=== PATIENT | female | born 1995 | race Caucasian/White ===

== ENCOUNTER 2018-06-12 09:46 | Outpatient (CLI) | payer BC, SELFPAY ==
[2018-06-12 12:10] LABS: Calcium 9.1 mg/dL (8.5-10.1); FREE T4 1.32 ng/dL (0.76-1.46); TSH 0.83 uIU/mL (0.358-3.74)
[2018-06-14 13:21] LABS: Parathyroid Hormone,Intact 28 pg/ml (19-88)
[2018-06-15 12:01] LABS: Calcitonin <5.0 pg/mL (<=7.6)
[2018-06-16 10:41] LABS: Metanephrine, Free <0.20 nmol/L (<0.50); Normetanephrine, Free 0.41 nmol/L (<0.90)
== END 2018-06-12 10:06 ==
PROVIDERS: Visit Provider Internal Medicine Endocrinology, Diabetes & Metabolism
DX: E31.22 Multiple endocrine neoplasia [MEN] type IIA (principal)
CPT/HCPCS: 36415; 82308; 82310; 83835; 83970; 84439; 84443

== ENCOUNTER 2019-07-01 01:55 | Outpatient (CLI) | payer BC, SELFPAY ==
[2019-07-01 14:17] LABS: Calcium 9.5 mg/dL (8.5-10.1); TSH 1.01 uIU/mL (0.36-3.74)
[2019-07-04 11:29] LABS: Metanephrine, Free <0.20 nmol/L (<0.50); Normetanephrine, Free 0.35 nmol/L (<0.90)
[2019-07-04 12:24] LABS: Parathyroid Hormone,Intact 38 pg/mL (19-88)
[2019-07-06 13:50] LABS: Calcitonin <5.0 pg/mL (<=7.6)
== END 2019-07-01 02:15 ==
PROVIDERS: Internal Medicine Endocrinology, Diabetes & Metabolism; PCP Nurse Practitioner Family; Visit Provider Internal Medicine
DX: E31.22 Multiple endocrine neoplasia [MEN] type IIA (principal)
CPT/HCPCS: 36415; 82308; 82310; 83835; 83970; 84443

== ENCOUNTER 2021-06-10 02:35 | Outpatient (CLI) | payer SELFPAY ==
[2021-06-10 14:22] LABS: Anion Gap 9.7 mmol/L (3-11); BUN 14 mg/dL (7-18); CO2 27.3 mmol/L (21.0-32.0); CREATININE 0.8 mg/dL (0.55-1.02); Calcium 9.7 mg/dL (8.5-10.1); Chloride 104 mmol/L (98-107); FREE T4 1.26 ng/dL (0.76-1.46); Glucose 92 mg/dL (74-106); Potassium 3.6 mmol/L (3.5-5.1); Sodium 141 mmol/L (136-145); TSH 0.09 uIU/mL (0.36-3.74)
[2021-06-11 15:47] LABS: Calcitonin <5.0 pg/mL (<=7.6)
[2021-06-14 11:38] LABS: Metanephrine, Free <0.20 nmol/L (<0.50); Normetanephrine, Free 0.42 nmol/L (<0.90)
== END 2021-06-10 02:36 | disposition home or self-care (01) ==
PROVIDERS: PCP Nurse Practitioner Family; Visit Provider Internal Medicine Endocrinology, Diabetes & Metabolism
DX: E31.22 Multiple endocrine neoplasia [MEN] type IIA (principal); E03.9 Hypothyroidism, unspecified
CPT/HCPCS: 36415; 80048; 82308; 83835; 84439; 84443

== ENCOUNTER 2023-01-26 05:02 | Outpatient (CLI) | payer MEDICAID, SELFPAY ==
[2023-01-26 15:38] LABS: FREE T4 0.93 ng/dL (0.76-1.46); TSH 2.82 uIU/mL (0.36-3.74)
[2023-01-26 20:55] LABS: Vitamin D 25 Total 36.1 ng/mL (30-100)
[2023-01-27 09:35] LABS: Parathyroid Hormone,Intact 36 pg/mL (19-88)
[2023-01-27 19:24] LABS: Calcitonin <5.0 pg/mL (<=7.6)
[2023-01-29 17:51] LABS: Metanephrine, Free <0.20 nmol/L (<0.50)
== END 2023-01-26 05:03 | disposition home or self-care (01) ==
PROVIDERS: PCP Nurse Practitioner Family; Visit Provider Internal Medicine Endocrinology, Diabetes & Metabolism
DX: E31.22 Multiple endocrine neoplasia [MEN] type IIA (principal); E89.0 Postprocedural hypothyroidism
CPT/HCPCS: 36415; 82306; 82308; 82310; 83835; 83970; 84439; 84443

== ENCOUNTER 2024-04-05 03:05 | Outpatient (CLI) | payer BC, SELFPAY ==
[2024-04-05 10:53] LABS: Calcium 9.8 mg/dL (8.5-10.1); FREE T4 0.88 ng/dL (0.76-1.46); TSH 10.82 uIU/mL (0.36-3.74)
[2024-04-05 11:29] LABS: Vitamin D 25 Total 36.5 ng/mL (30-100)
[2024-04-05 18:38] LABS: Parathyroid Hormone,Intact 24.4 pg/mL (19.0-88.0)
[2024-04-07 20:41] LABS: Calcitonin <5.0 pg/mL (<=7.6)
[2024-04-11 09:40] LABS: Metanephrine, Free <0.20 nmol/L (<0.50); Normetanephrine, Free 0.35 nmol/L (<0.90)
== END 2024-04-05 03:06 | disposition home or self-care (01) ==
PROVIDERS: PCP Nurse Practitioner Family; Visit Provider Internal Medicine Endocrinology, Diabetes & Metabolism
DX: E31.22 Multiple endocrine neoplasia [MEN] type IIA (principal)
CPT/HCPCS: 36415; 82306; 82308; 82310; 83835; 83970; 84439; 84443

== ENCOUNTER 2024-05-09 03:14 | Outpatient (CLI) | payer BC, SELFPAY ==
[2024-05-09 13:49] LABS: TSH (W/Ref FT4) 11.12 uIU/mL (0.36-3.74)
== END 2024-05-09 03:15 | disposition home or self-care (01) ==
PROVIDERS: PCP Nurse Practitioner Family; Visit Provider Internal Medicine Endocrinology, Diabetes & Metabolism
DX: E31.22 Multiple endocrine neoplasia [MEN] type IIA (principal); E03.9 Hypothyroidism, unspecified
CPT/HCPCS: 36415; 84439; 84443

== ENCOUNTER 2024-07-18 01:54 | Outpatient (CLI) | payer BC, SELFPAY | END 2024-07-18 01:55 | disposition home or self-care (01) | PROVIDERS: PCP Nurse Practitioner Family; Visit Provider Internal Medicine Endocrinology, Diabetes & Metabolism | DX: E89.0 Postprocedural hypothyroidism (principal) | CPT/HCPCS: 36415; 84443 ==

== ENCOUNTER 2024-08-17 02:19 | Outpatient (CLI) | payer BC, SELFPAY ==
[2024-08-24 13:05] LABS: Testosterone, Total 475 ng/dL (8-60)
== END 2024-08-17 02:20 | disposition home or self-care (01) ==
PROVIDERS: PCP Nurse Practitioner Family; Visit Provider Physician Assistant Medical
DX: F64.9 Gender identity disorder, unspecified (principal)
CPT/HCPCS: 36415; 84403

== ENCOUNTER 2025-02-09 03:24 | Outpatient (CLI) | payer BC, SELFPAY ==
[2025-02-09 10:11] LABS: HGB 18.2 g/dL (11.2-15.7)
== END 2025-02-09 03:25 | disposition home or self-care (01) ==
PROVIDERS: PCP Nurse Practitioner Family; Visit Provider Nurse Practitioner Family
DX: F64.9 Gender identity disorder, unspecified (principal)
CPT/HCPCS: 36415; 85018

== ENCOUNTER 2025-04-06 08:15 | Outpatient (CLI) | payer BC, SELFPAY ==
[2025-04-06 13:07] LABS: HCT 50.0 % (36.0-46.0); HGB 17.1 g/dL (11.2-15.7); MCH 29.9 pg (27.0-33.0); MCHC 34.2 % (32.0-36.0); MCV 87 fL (80-95); MPV 10.9 fL (8.0-11.0); Platelet Count 213 10^3/uL (130-400); RBC 5.72 10^6/uL (3.93-5.22); RDW 12.8 % (11.7-14.6); RDW-SD 40.9 fL; WBC 7.95 10^3/uL (4.4-10.8)
[2025-04-06 15:22] LABS: Calcium 9.5 mg/dL (8.3-10.6)
[2025-04-06 15:28] LABS: TSH 0.49 uIU/mL (0.55-4.78); Vitamin D 25 Total 37 ng/mL (30-100)
[2025-04-10 16:24] LABS: Metanephrine, Free <0.20 nmol/L (<0.50); Normetanephrine, Free 0.38 nmol/L (<0.90)
== END 2025-04-06 08:16 | disposition home or self-care (01) ==
PROVIDERS: Nurse Practitioner Adult Health; PCP Nurse Practitioner Family; Visit Provider Internal Medicine Endocrinology, Diabetes & Metabolism
DX: E31.22 Multiple endocrine neoplasia [MEN] type IIA (principal); E89.0 Postprocedural hypothyroidism; F64.9 Gender identity disorder, unspecified
CPT/HCPCS: 36415; 82306; 84403; 85027; 82308; 82310; 83835; 83970; 84439; 84443